=== PATIENT | male | born 1995 | race Caucasian/White ===

== ENCOUNTER 2021-11-12 22:36 | Emergency (ER) | payer OTHER ==
[~2021-11-12 22:36] MED LIST: AMOX TR-K CLV1 EAC4 PO
[2021-11-13] MEDS ORDERED: CYCLOBENZAPRINE10 MG PO (02:55)
[2021-11-13] MEDS ORDERED: NAPROSYN500 MG PO (02:55)
== END 2021-11-13 03:17 | disposition home or self-care (01) ==
LOC: ER1 22:36
DX: S20.212A Contusion of left front wall of thorax, initial encounter (principal); S40.012A Contusion of left shoulder, initial encounter; F17.210 Nicotine dependence, cigarettes, uncomplicated; V49.9XXA Car occupant (driver) (passenger) injured in unspecified traffic accident, initial encounter
CPT/HCPCS: 71046; 73030; 99283